=== PATIENT | female | born 2005 | race Two or more races ===

== ENCOUNTER 2025-05-27 17:27 | Emergency (ER) | payer MEDICAID, SELFPAY ==
[2025-05-27 17:43] VITALS: BP 133/93; PULSE 91; RESP 20; TEMP 37.2; O2SAT 99
--- NOTE | 2025-05-27 18:22 | XR_ITS ---
Examination: Right ankle 2 views TECHNIQUE: AP lateral right ankle 2 views Date and time: May 27, 2025 at 1826 hours INDICATIONS: Twisting injury to the ankle today, ankle pain. FINDINGS: Prominent lateral malleolar soft tissue swelling. No fracture or ankle dislocation IMPRESSION: No acute fracture
--- NOTE | 2025-05-27 19:18 | PD.EDANKLE ---
Lower Extremity Injury RME/HPI General Chief Complaint: Ankle/Foot Injury Stated Complaint: Fall hurt right ankle Time Seen by Provider: 05/27/25 18:19 Source: patient Arrival date/time: 05/27/25 17:27 This is a case of 19-year-old female who came into the emergency room due to right ankle pain and swelling history of present illness today when the patient was walking accidentally twisted his right ankle sustaining pain and swelling no other injury noted denies any numbness weakness or tingling sensation Limitations: no limitations Related Data Previous Rx's ?Medication ?Instructions ?Recorded ibuprofen 800 mg tablet 800 mg PO Q8H PRN pain #30 tabs 05/27/25 Allergies Allergy/AdvReac Type Severity Reaction Status Date / Time No Known Drug Allergies Allergy Verified 05/27/25 17:35 Review of Systems Review of Systems Systems Reviewed: All systems reviewed, normal except as documented Constitutional Constitutional: Reports system reviewed and no additional complaints, except as documented Cardiovascular Cardiovascular: Reports system reviewed and no additional complaints, except as documented and Reports as per HPI Respiratory Respiratory: Reports system reviewed and no additional complaints, except as documented and Reports as per HPI Gastrointestinal Gastrointestinal: Reports system reviewed and no additional complaints, except as documented and Reports as per HPI Musculoskeletal Musculoskeletal: Reports other (Right ankle pain) Neurologic Neurologic: Reports system reviewed and no additional complaints, except as documented and Reports as per HPI Past Medical History Social History SMOKING STATUS: Never smoker ED Exam General Limitations: Present no limitations General appearance: Present alert and in no apparent distress Head Head exam: Present atraumatic Eye Eye exam: Present normal appearance, PERRL and EOMI ENT ENT exam: Present normal exam, normal oropharynx and mucous membranes moist Neck Neck exam: Present normal inspection, full ROM and trachea midline; Absent tenderness, meningismus, lymphadenopathy or thyromegaly Chest Chest inspection: Present normal inspection and symmetric chest wall rise Respiratory Respiratory exam: Present normal lung sounds bilaterally; Absent respiratory distress, wheezes, stridor, accessory muscle use or prolonged expiratory phase Cardiovascular Cardiovascular exam: Present regular rate, normal rhythm and normal heart sounds; Absent bradycardia, tachycardia, irregular rhythm or systolic murmur Abdominal Exam Abdominal exam: Present soft and normal bowel sounds; Absent distention, tenderness, guarding, rebound, rigidity, diminished bowel sounds or hyperactive bowel sounds Extremities Exam Extremities exam: Present normal inspection and full ROM Expanded Lower Extremity Exam Ankle exam: Present tenderness (Moderate tenderness on the lateral side of the right ankle), swelling (Mild swelling on the right lateral ankle) and other (Moderate tenderness on palpation on the lateral side of the right ankle with mild swelling no crepitation no deformity no redness ROM is limited due to pain sensory intact capillary refill less than 2 seconds pulses were full and equal negative Gillespie signs negative Homans signs no calf tenderness); Absent abrasion, laceration, ecchymosis, deformity, crepitus, dislocation, erythema, tenderness over talofibular lig or anterior draw sign Back Exam Back exam: Present normal inspection and full ROM Neurological Exam Neurological exam: Present alert, oriented X3 and CN II-XII intact Psychiatric Psychiatric exam: Present normal affect and normal mood Skin Skin exam: Present warm, dry, intact and normal color Course Quality Measures none Orders Category Date Time Status Crutches .NOW Care 05/27/25 19:11 Active Splint / Immobilizer STAT Care 05/27/25 19:11 Active XR ankle RT 2V Stat Exams 05/27/25 18:22 Completed HYDROcodone*/APAP 5/325 [Chama 5/325] Med 05/27/25 19:11 Discontinued 1 tab PO X1 ONE Vital Signs Vital signs: Vital Signs Temperature 98.9 F 05/27/25 17:43 Pulse Rate 91 05/27/25 17:43 Respiratory Rate 20 05/27/25 17:43 Blood Pressure 133/93 H 05/27/25 17:43 Pulse Oximetry (%) 99 05/27/25 17:43 Oxygen Delivery Method Room Air 05/27/25 17:43 Oxygen saturation 99% in room air Extremity Injury, Lower MDM Narrative MDM Narrative:: This is a case of 19-year-old female who came into the emergency room due to right ankle pain and swelling history of present illness today when the patient was walking accidentally twisted his right ankle sustaining pain and swelling no other injury noted denies any numbness weakness or tingling sensation physical examination patient is awake alert oriented not in distress nontoxic looking ankle examinationModerate tenderness on palpation on the lateral side of the right ankle with mild swelling no crepitation no deformity no redness ROM is limited due to pain sensory intact capillary refill less than 2 seconds pulses were full and equal negative Gillespie signs negative Homans signs no calf tenderness x-ray showed fracture nondisplaced on the distal fibula right ankle splint was applied short leg patient tolerated well neurovascular intact I discussed with the patient the results of the x-ray patient will follow-up with PCP to be referred to Ortho for further evaluation and treatment of distal fibular fracture for any worsening symptoms or any emergent concern he will return in the emergency room immediate call 911 patient was given Chama here in the emergency room which improved the pain patient was prescribed with ibuprofen for pain RICE treatment will continue by the patient at home Patient was discharged with comfortable condition walking with stable gait. Patient verbalized no further complains explained diagnosis and answered patient question. Patient is comfortable with the proposed management plan including the need to follow up with his/her primary care physician and any specialist if applicable Discussed patient for any urgent condition or worsening sx, He/She needed to go to emergency room immediately or call 911. Patient acknowledge the responsibility to follow up as instructed and to monitor her/his symptoms. For any persistence of the symptoms for more than 3-5 days return precaution advised. Discussed the result of the test and was given printed discharge instruction Patient data External records reviewed:: [facility] previous records Clinical information provided by:: patient Social determinants that could affect healthcare access:: none Patient has the following chronic illnesses:: None How is presenting disease/condition affected by chronic disease/condition?: no chronic disease Evaluation data The following diagnostics were reviewed and interpreted by me:: radiology exam(s) Lab and/or radiology exams considered but not ordered:: Reviewed Interpretation Summary: Reviewed Medications / Prescriptions Medications or Prescriptions considered but not ordered:: Given Medication administrations:: Medication Administration History Discontinued Medications Hydrocodone Bitart/Acetaminophen (Hydrocodone/Apap 5/325 Tablet) 1 tab PO X1 ONE Stop: 05/27/25 19:12 Given Consultations Consultation(s) initiated? (list below): No Diagnosis Extremity Injury, Lower Differential Diagnosis: ankle fracture and other (Ankle sprain dislocation) Most likely diagnosis given after review of the tests above:: Distal fibular fracture right ankle Admission Indicated Admission indicated?: not indicated Explain why admission is indicated or not indicated:: Not indicated Admission Request Was there a request for admission?: No Admission Attestation Admission request attestation: Not indicated Disposition Plan Disposition Plan: Discharge Discharge Attestation Discharge Attestation: The patient and all family members were given an opportunity to ask questions and understood the discharge instructions. Discharge instructions specifically effects, indications for sooner follow up or return to the emergency department, and the expected course of current diagnosis. Patient condition: Stable Discharge Plan Plan Patient Disposition: HOME (Self Care) Patient condition on transfer: Stable Prescriptions/Referrals Prescriptions/Med Rec: New ibuprofen 800 mg tablet 800 mg PO Q8H PRN (Reason: pain) Qty: 30 0RF Referrals: Andrew Mittal MD [Physician] - 05/29/25 7:18 pm (For further evaluation and treatment of distal fibular fracture of the right ankle) Problem List Clinical Impression: Closed fracture of distal end of right fibula Patient/Caregiver Discharge Instructions Education Materials: RICE, Crutches Weight Bearing Dc, ED Splint Care, Fiberglass, ED Ankle Fracture, Distal Fibula Additional Instructions: Follow-up with your primary care physician in 2 days for reevaluation and to be referred to orthopedic surgeon for further evaluation and treatment of distal fibular fracture right ankle for any worsening symptoms or any emergent concern such as numbness weakness tingling sensation return to the emergency room immediately or call 911 ice pack every 2 hours for 20 minutes for 24 hours then alternate with warm compress elevate to decrease swelling no weightbearing on the right ankle use of crutches and keep the splint in place until cleared by your primary care physician ibuprofen and Tylenol for pain Print Language: Divehi Stand Alone Forms: Desi Award Info., Patient Portal Info Letter PA/REPAIR CLERK Supervising Physician EDUARDO/MARIA INES Supervising Physician: dr son
[2025-05-27] MEDS: HYDROcodone/APAP 5/325 TABLET 1 TAB PO (19:47)
[2025-05-27 20:11] VITALS: BP 112/78; PULSE 77; RESP 18; TEMP 36.6; O2SAT 99
== END 2025-05-27 20:12 | disposition home or self-care (01) ==
PROVIDERS: Emergency Provider Emergency Medicine
DX: S82.401A Unspecified fracture of shaft of right fibula, initial encounter for closed fracture (principal); X50.1XXA Overexertion from prolonged static or awkward postures, initial encounter; Y93.01 Activity, walking, marching and hiking
CPT/HCPCS: 29515; 73600; 99283; A9270

== ENCOUNTER 2025-05-29 16:35 | Emergency (ER) | payer MEDICAID, SELFPAY ==
[2025-05-29 16:36] VITALS: BMI 34.5
[2025-05-29 18:24] VITALS: BP 108/61; PULSE 89; RESP 18; TEMP 36.9; O2SAT 100
--- NOTE | 2025-05-29 18:54 | PD.EDEXREM ---
ED Extremity Problem RME/HPI General Chief complaint: Extremity Problem,Nontraumatic Stated complaint: NEED NEW CAST LEFT FOOT, REMOVED OLD ONE Time Seen by Provider: 05/29/25 18:23 Arrival date/time: 05/29/25 16:35 This is a case of 19-year-old female who came in in the emergency room requesting to apply the splint on his right ankle patient was seen here May 27, 2025 patient accidentally twisted his right ankle and seen by me and sustained a fracture on the distal fibula right ankle patient states that the splint that was applied was wet and dirty and requested to be change patient denies any numbness weakness tingling sensation. Limitations: no limitations Related Data Previous Rx's ?Medication ?Instructions ?Recorded ibuprofen 800 mg tablet 800 mg PO Q8H PRN pain #30 tabs 05/27/25 Allergies Allergy/AdvReac Type Severity Reaction Status Date / Time No Known Drug Allergies Allergy Verified 05/29/25 16:39 Review of Systems Review of Systems Systems Reviewed: All systems reviewed, normal except as documented Constitutional Constitutional: Reports system reviewed and no additional complaints, except as documented Cardiovascular Cardiovascular: Reports system reviewed and no additional complaints, except as documented and Reports as per HPI Respiratory Respiratory: Reports system reviewed and no additional complaints, except as documented and Reports as per HPI Gastrointestinal Gastrointestinal: Reports system reviewed and no additional complaints, except as documented and Reports as per HPI Genitourinary Genitourinary: Reports system reviewed and no additional complaints, except as documented and Reports as per HPI Musculoskeletal Musculoskeletal: Reports other (Right ankle pain) Neurologic Neurologic: Reports system reviewed and no additional complaints, except as documented and Reports as per HPI Past Medical History Social History SMOKING STATUS: Never smoker ED Exam General Limitations: Present no limitations General appearance: Present alert and in no apparent distress Head Head exam: Present atraumatic Eye Eye exam: Present normal appearance, PERRL and EOMI ENT ENT exam: Present normal exam, normal oropharynx and mucous membranes moist Neck Neck exam: Present normal inspection, full ROM and trachea midline Chest Chest inspection: Present normal inspection and symmetric chest wall rise Respiratory Respiratory exam: Present normal lung sounds bilaterally; Absent respiratory distress, wheezes, stridor, accessory muscle use or prolonged expiratory phase Cardiovascular Cardiovascular exam: Present regular rate, normal rhythm and normal heart sounds; Absent bradycardia, tachycardia, irregular rhythm, systolic murmur or diastolic murmur Abdominal Exam Abdominal exam: Present soft and normal bowel sounds; Absent distention, tenderness, guarding, rebound, rigidity, diminished bowel sounds, hyperactive bowel sounds or hypoactive bowel sounds Extremities Exam Extremities exam: Present normal inspection and full ROM Expanded Lower Extremity Exam Foot/toe exam: Present normal inspection, tenderness (Mild to moderate tenderness on the right ankle tenderness with mild swelling no crepitation no deformity no redness no ecchymosis ROM limited due to pain neurovascular intact) and swelling; Absent abrasion, laceration, ecchymosis, deformity, crepitus, dislocation, erythema, puncture wound, calcaneal tenderness, nail avulsion or subungual hematoma Back Exam Back exam: Present normal inspection and full ROM Neurological Exam Neurological exam: Present alert, oriented X3, CN II-XII intact, normal gait and reflexes normal; Absent motor sensory deficit Psychiatric Psychiatric exam: Present normal affect and normal mood Skin Skin exam: Present warm, dry, intact and normal color Course Quality Measures none Vital Signs Vital signs: Vital Signs Temperature 98.4 F 05/29/25 18:24 Pulse Rate 89 05/29/25 18:24 Respiratory Rate 18 05/29/25 18:24 Blood Pressure 108/61 05/29/25 18:24 Pulse Oximetry (%) 100 05/29/25 18:24 Oxygen saturation 100% in room air normal Extremity Problem MDM Narrative MDM Narrative:: This is a case of 19-year-old female who came in in the emergency room requesting to apply the splint on his right ankle patient was seen here May 27, 2025 patient accidentally twisted his right ankle and seen by me and sustained a fracture on the distal fibula right ankle patient states that the splint that was applied was wet and dirty and requested to be change patient denies any numbness weakness tingling sensation. Physical examination patient is awake alert oriented not in distress nontoxic looking mild to moderate tenderness in the right ankle with swelling no crepitation no deformity ROM limited due to pain neurovascular intact a new splint was reapplied neurovascular intact tolerated well RICE treatment will continue by the patient at home patient will follow-up with orthopedic surgeon for any worsening symptoms patient to return in the emergency room and call 911 Patient was discharged with comfortable condition walking with stable gait. Patient verbalized no further complains explained diagnosis and answered patient question. Patient is comfortable with the proposed management plan including the need to follow up with his/her primary care physician and any specialist if applicable Discussed patient for any urgent condition or worsening sx, He/She needed to go to emergency room immediately or call 911. Patient acknowledge the responsibility to follow up as instructed and to monitor her/his symptoms. For any persistence of the symptoms for more than 3-5 days return precaution advised. Discussed the result of the test and was given printed discharge instruction Patient data External records reviewed:: [facility] previous records Clinical information provided by:: patient Social determinants that could affect healthcare access:: none Patient has the following chronic illnesses:: None How is presenting disease/condition affected by chronic disease/condition?: no chronic disease Evaluation data The following diagnostics were reviewed and interpreted by me:: other (specify) Lab and/or radiology exams considered but not ordered:: None Interpretation Summary: None I am Medications / Prescriptions Medications or Prescriptions considered but not ordered:: Given Medication administrations:: Given Consultations Consultation(s) initiated? (list below): No Diagnosis Extremity Problem Differential Diagnosis: other (Ankle fracture) Most likely diagnosis given after review of the tests above:: Distal fibular fracture Admission Indicated Admission indicated?: not indicated Explain why admission is indicated or not indicated:: Not indicated Admission Request Was there a request for admission?: No Admission Attestation Admission request attestation: Not indicated Disposition Plan Disposition Plan: Discharge Discharge Attestation Discharge Attestation: The patient and all family members were given an opportunity to ask questions and understood the discharge instructions. Discharge instructions specifically effects, indications for sooner follow up or return to the emergency department, and the expected course of current diagnosis. Patient condition: Stable Discharge Plan Plan Patient Disposition: HOME (Self Care) Prescriptions/Referrals Prescriptions/Med Rec: No Action ibuprofen 800 mg tablet 800 mg PO Q8H PRN (Reason: pain) Qty: 30 0RF Problem List Clinical Impression: Closed fracture of distal end of right fibula Patient/Caregiver Discharge Instructions Education Materials: ED Ankle Fracture, Distal Fibula, ED RICE Additional Instructions: Follow-up with your primary care physician in 2 days for reevaluation and to be referred to orthopedic surgeon for further evaluation and treatment of distal fibular fracture right ankle worsening symptoms or any emergent concerns such as numbness weakness tingling sensation incontinence to urine or stool call 911 or go to the nearest emergency room continue the medication that was prescribed from the previous visit ice pack every 2 hours for 20 minutes for 24 hours and alternate with warm compress keep the splint clean dry and intact use of crutches for ambulation elevate to decrease swelling Print Language: [place]ese Stand Alone Forms: Desi Award Info., Patient Portal Info Letter PA/DIRECTOR OF ANCILLARY SERVICES Supervising Physician PA/DIRECTOR OF ANCILLARY SERVICES Supervising Physician: dr mata
== END 2025-05-29 20:14 | disposition home or self-care (01) ==
PROVIDERS: Emergency Provider Emergency Medicine; PCP Physician Assistant
DX: S82.891A Other fracture of right lower leg, initial encounter for closed fracture (principal); X50.1XXA Overexertion from prolonged static or awkward postures, initial encounter
CPT/HCPCS: 29515; 99282